=== PATIENT | female | born 1995 | race Hispanic/Latino ===

== ENCOUNTER 2021-12-22 09:07 | Outpatient (CLI) ==
[~2021-12-22] VITALS: Ht 160 cm; Wt 87.7 kg
[2021-12-22 09:23] VITALS: BP 108/51
[2021-12-22] MEDS ORDERED: TUMS500C PO (09:28)
[2021-12-22] MEDS ORDERED: PRENTAB9 PO (09:28)
[2021-12-22 11:18] VITALS: BP 107/55
== END 2021-12-22 11:22 | disposition home or self-care (01) ==
LOC: M LDO 09:07
PROVIDERS: ATTEND Obstetrics & Gynecology
DX: O26.893 Other specified pregnancy related conditions, third trimester (principal); R10.2 Pelvic and perineal pain; Z3A.36 36 weeks gestation of pregnancy
CPT/HCPCS: 59025; 76815; G0463

== ENCOUNTER 2022-01-08 22:52 | Outpatient (CLI) ==
[~2022-01-08] VITALS: Ht 160 cm; Wt 89.5 kg
[~2022-01-08 22:52] MED LIST: PRENTAB9 PO; TUMS500C PO
[2022-01-08 23:19] VITALS: BP 118/56
== END 2022-01-08 23:55 | disposition home or self-care (01) ==
LOC: M LDO 22:52
PROVIDERS: ATTEND Obstetrics & Gynecology
DX: O47.1 False labor at or after 37 completed weeks of gestation (principal); Z3A.39 39 weeks gestation of pregnancy; O99.353 Diseases of the nervous system complicating pregnancy, third trimester; G43.909 Migraine, unspecified, not intractable, without status migrainosus; Z86.16 Personal history of COVID-19
CPT/HCPCS: 59025; G0463

== ENCOUNTER 2022-01-09 02:38 | Outpatient (CLI) ==
[~2022-01-09] VITALS: Ht 160 cm; Wt 89.6 kg
[2022-01-09 03:03] VITALS: BP 120/70
== END 2022-01-09 05:21 | disposition home or self-care (01) ==
LOC: M LDO 02:38
PROVIDERS: ATTEND Obstetrics & Gynecology
DX: O47.1 False labor at or after 37 completed weeks of gestation (principal); Z3A.39 39 weeks gestation of pregnancy; O99.353 Diseases of the nervous system complicating pregnancy, third trimester; G43.909 Migraine, unspecified, not intractable, without status migrainosus; Z86.16 Personal history of COVID-19
CPT/HCPCS: 59025; G0463

== ENCOUNTER → 2022-01-10 | Outpatient (CLI) ==
[~2022-01-10] VITALS: Ht 160 cm; Wt 90.4 kg
[~2022-01-10] MED LIST changes: +ACET-683 PO; +COLA100C5 PO; +IBUP80TA PO
[2022-01-10 22:27] VITALS: BP 119/57
== END ==
LOC: M LDO 22:12
PROVIDERS: ATTEND Obstetrics & Gynecology
DX: O47.1 False labor at or after 37 completed weeks of gestation (principal); Z3A.39 39 weeks gestation of pregnancy; Z87.59 Personal history of other complications of pregnancy, childbirth and the puerperium; Z86.16 Personal history of COVID-19
CPT/HCPCS: 59025; G0463

== ENCOUNTER 2022-01-17 07:45 | Inpatient (IN) | payer OTHER ==
[2022-01-17] VITALS (32 sets, daily range): BP systolic 92–177; BP diastolic 46–94
[~2022-01-17] VITALS: Ht 160 cm; Wt 88.8 kg
[~2022-01-17 07:45] MED LIST changes: -ACET-683 PO; -COLA100C5 PO; -IBUP80TA PO
[2022-01-17] MEDS ORDERED: LIDOCAINE 1% MDV 20ML VIAL INFIL PRN (12:35)
[2022-01-17] MEDS ORDERED: METHYLERGONOVINE MALEATE 0.2 MG/ML VIAL (J2210) IM PRN (12:35)
[2022-01-17] MEDS ORDERED: OXYTOCIN DRIP 30 UNITS in IV 1 EA IV PRN (12:35)
[2022-01-17] MEDS ORDERED: LACTATED RINGER'S 1000 ML IV PRN (12:35)
[2022-01-17] MEDS ORDERED: TRANEXAMIC ACID INJection 1,000 MG in NS 100 ML IV PRN (12:35)
[2022-01-17] MEDS ORDERED: OXYTOCIN DRIP 30 UNITS in IV 1 EA IV SCH (12:35)
[2022-01-17 13:43] LABS: HEMATOCRIT 31.2 % (36.0-47.0); HEMOGLOBIN 10.1 g/dl (12.0-15.5); MEAN CORPUSCULAR HEMOGLOBIN 26.6 pg (27.0-33.0); MEAN CORPUSCULAR HGB CONC 32.4 g/dl (32.0-36.5); MEAN CORPUSCULAR VOLUME 82.1 fl (80.0-96.0); PLATELET COUNT, AUTOMATED 286 10^3/uL (150-450); WHITE BLOOD COUNT 9.5 10^3/uL (4.0-10.0)
[2022-01-17] MEDS: LR 1,000 ML IV SCH ×2 (14:41→22:20)
[2022-01-17] MEDS ORDERED: diphenhydrAMINE 50MG/ML VIAL (J1200) IV PRN (20:50)
[2022-01-17] MEDS ORDERED: NALOXONE INJ 0.4MG/1ML VIAL (J2310 PER 1MG) IV PRN (20:50)
[2022-01-17] MEDS ORDERED: ePHEDrine SULFATE 25 MG/5 ML(5MG/ML) SYRINGE IVP PRN (20:50)
[2022-01-17] MEDS ORDERED: LR 500 ML IV PRN (20:50)
[2022-01-17] MEDS ORDERED: FENTANYL/ROPIVACAINE/NACL BAG 100 ML EPIDURAL SCH (20:50)
[2022-01-17] MEDS ORDERED: REFLB XX ONE (20:50)
[2022-01-17] MEDS ORDERED: EPIDURAL/PCA KEYS XX PRN (20:50)
[2022-01-17] MEDS ORDERED: ONDANSETRON 4MG 2ML VIAL IV PRN (20:50)
[2022-01-17] MEDS ORDERED: FENTANYL 2MCG/ML ROPIVACAINE 0.2% IN 0.9% NACL 100ML IVBAG As Ordered ONE (20:51)
[2022-01-18] VITALS (11 sets, daily range): BP systolic 95–128; BP diastolic 52–64
[2022-01-18] MEDS ORDERED: DIBUCAINE 1% OINTMENT 30GM TOP PRN (01:55)
[2022-01-18] MEDS ORDERED: DOCUSATE SODIUM 100MG CAPSULE PO PRN (01:55)
[2022-01-18] MEDS ORDERED: METHYLERGONOVINE MALEATE 0.2 MG TAB PO PRN (01:55)
[2022-01-18] MEDS ORDERED: RHOGAM 300 MCG (1500 IU) INJ (J2790) IM SCH (01:55)
[2022-01-18] MEDS: IBUPROFEN 800 MG TAB PO PRN ×3 (04:06→20:40)
[2022-01-18] MEDS: PRENATAL VITAMINS CHEWABLE TABLET PO SCH (07:59)
[2022-01-18] MEDS: ACETAMINOPHEN 500 MG TAB PO PRN (17:32)
[2022-01-19] MEDS: ACETAMINOPHEN 500 MG TAB PO PRN (05:14)
[2022-01-19 06:08] VITALS: BP 98/57
[2022-01-19] MEDS: PRENATAL VITAMINS CHEWABLE TABLET PO SCH (07:47)
[2022-01-19] MEDS ORDERED: ACET-683 PO (08:54)
[2022-01-19] MEDS ORDERED: COLA100C5 PO (08:54)
[2022-01-19] MEDS ORDERED: IBUP80TA PO (08:54)
[2022-01-20] MEDS ORDERED: MEASLES,MUMPS,RUBELLA VACCINE INJ (MMR-II) (90707) SC.IMMUN ONE (09:00)
== END 2022-01-19 17:55 | disposition home or self-care (01) | DRG 807 ==
LOC: M LDO 07:45 → M LDI 12:19 → M OBS 01-18 04:30
PROVIDERS: ADMIT Registered Nurse; ATTEND Obstetrics & Gynecology
PROC: 3E033VJ Introduction of Other Hormone into Peripheral Vein, Percutaneous Approach (ICD-10-PCS; 2022-01-17)
PROC: 10907ZC Drainage of Amniotic Fluid, Therapeutic from Products of Conception, Via Natural or Artificial Opening (ICD-10-PCS; 2022-01-17)
PROC: 10E0XZZ Delivery of Products of Conception, External Approach (ICD-10-PCS; principal; 2022-01-18)
DX: O42.02 Full-term premature rupture of membranes, onset of labor within 24 hours of rupture (principal); Z37.0 Single live birth; O76 Abnormality in fetal heart rate and rhythm complicating labor and delivery; Z3A.40 40 weeks gestation of pregnancy; O64.5XX0 Obstructed labor due to compound presentation, not applicable or unspecified; O69.81X0 Labor and delivery complicated by cord around neck, without compression, not applicable or unspecified; Z86.16 Personal history of COVID-19